=== PATIENT | female | born 1965 | race African-American/Black ===

== ENCOUNTER 2020-08-08 10:24 | Emergency (ER) | payer OTHER ==
[2020-08-08 10:35] VITALS: BMI 29.9
[2020-08-08] MEDS ORDERED: IBUPROFEN 400 MG TABLET (FP) PO ONE ×2 (11:34→11:36)
[2020-08-08 11:41] VITALS: BP 130/87; PULSE 96; TEMP 98.9
== END 2020-08-08 11:42 | disposition home or self-care (01) ==
LOC: JERFT 10:24
DX: S39.92XA Unspecified injury of lower back, initial encounter (principal)
CPT/HCPCS: 99283-25